=== PATIENT | female | born 1950 | race Caucasian/White ===

== ENCOUNTER 2018-01-08 06:48 | Emergency (ER) | payer OTHER ==
[2018-01-08] MEDS ORDERED: NA CHLORIDE 0.9% 1,000 ML ONE (07:19)
[2018-01-08 07:23] LABS: Urine Blood 2+ (NEG); Urine Glucose NEGATIVE (NEG); Urine Protein 1+ (NEG); Urine Specific Gravity 1.015 (1.005-1.030)
[2018-01-08] MEDS ORDERED: MORPHINE 4 MG/ML SYR ONE (07:28)
[2018-01-08] MEDS ORDERED: ONDANSETRON 4 MG/2 ML VIAL ONE (07:28)
[2018-01-08 08:01] LABS: Urine Bacteria >50 /HPF (<20); Urine Culture Reflex Order REFLEXED
[2018-01-08 08:02] LABS: Urine Mucus NS /HPF (NONE SEEN)
[2018-01-08 08:03] LABS: Potassium 3.6 mEq/L (3.6-5.0)
[2018-01-08] MEDS ORDERED: CEFTRIAXONE/SWI 1gm 1 GM/10 ML SYR ONE (08:11)
--- NOTE | 2018-01-08 08:15 | RAD REPORT ---
EXAM DESCRIPTION: CT - Stone Protocol - 01/08/2018 7:42 am CLINICAL HISTORY: Abdominal pain, dysuria COMPARISON: None. TECHNIQUE: Axial 5 mm thick images were obtained without oral or IV contrast. The [id number] span s the entirety of the system including uppermost abdomen and lung bases. All CT scans are performed using dose optimization technique as appropriate and may include automated exposure control or mA/KV adjustment according to patient size. FINDINGS: No hydronephrosis is present and no obstructing ureteral calculi. No suspicious renal mass es. Isodense masses and pyelonephritis are not excluded on a stone protocol CT scan. Urinary bladder is almost fully contracted. This accentuates wall thickness. However, rizzo of bladder do appear more prominent than expected even for contracted state. There is shaggy margination as well as some conge stion or edema in the adjacent fat. Cystitis is suspected and needs correlation with UA findings. Bagwell ramiro is absent. Ovaries are absent, atrophic or obscured by bowel. No adnexal abnormality seen. Imaged portions of the liver, spleen and pancreas show no suspicious findings on non-contrast imaging . No gallbladder or biliary tree abnormality identified. No significant adrenal finding. No gastric dilatation or gastric wall thickening. There is moderately large stool volume throughout t he colon. Air, fluid and stool distended cecum is present. The cecum is low lying along the floor the pelvis. Patient has numerous nondilated fluid-filled small bowel loops probably incidental to the cu rrent clinical presentation. No hernia, mass or bulky lymphadenopathy noted. No free air, free fluid or inflammatory stranding. No significant bony abnormality. IMPRESSION: Probable cystitis. Correlation is needed with UA abnormalities. No hydronephrosis, obstructing calculus or other acute finding. Isodense masses and pyelonephritis are not excluded on stone protocol technique. Moderately large stool volume throughout the colon with multiple nondilated fluid-filled small bowel loops. These are likely incidental findings to the current presentation.
--- NOTE | 2018-01-08 08:29 | ER ---
Nurse's Notes [facility] Name: Yenny Naranjo Age: 67 yrs Sex: Female : 1950 Arrival Date: 01/08/2018 Time: 06:52 Bed 18 Private MD: Diagnosis: Cystitis Presentation: 01/08 07:06 Presenting complaint: Patient states: c/o dysuria and urinary frequency with low back em pain that started yesterday, denies fever, N/V. Transition of care: patient was not received from another setting of care. Onset of symptoms was January 07, 2018. Care prior to arrival: None. 07:06 Method Of Arrival: Ambulatory em 07:06 Acuity: ZORA 3 iw Triage Assessment: 07:09 General: Appears in no apparent distress. uncomfortable. General: Appears Behavior is em calm, cooperative. Pain: Complains of pain in groin Pain currently is 9 out of 10 on a pain scale. Quality of pain is described as burning. Historical: - Allergies: 07:09 No Known Allergies; em - PMHx: 07:09 None; em - PSHx: 07:09 Hysterectomy; Hernia repair; em - Immunization history:: Adult Immunizations up to date. - Social history:: Smoking status: Patient/guardian denies using tobacco. Screenin:13 Abuse screen: Denies threats or abuse. Nutritional screening: No deficits noted. em Tuberculosis screening: No symptoms or risk factors identified. Fall Risk None identified. Assessment: 07:10 General: Appears in no apparent distress. uncomfortable, Behavior is calm, appropriate em for age. Pain: Complains of pain in left low back and right low back and groin Pain currently is 9 out of 10 on a pain scale. Quality of pain is described as burning, Pain began 1 day ago. Neuro: Level of Consciousness is awake, alert, obeys commands, Oriented to person, place, time, situation, Gait is steady. Cardiovascular: Capillary refill < 3 seconds Patient's skin is warm and dry. Respiratory: Airway is patent Respiratory effort is even, unlabored, Respiratory pattern is regular, symmetrical. GI: Abdomen is flat, Patient currently denies nausea, vomiting. : Urine is cloudy, Reports burning with urination, pain in lower back urinary frequency. EENT: No signs and/or symptoms were reported regarding the EENT system. Derm: Skin is intact, Skin is pink, warm \T\ dry. Musculoskeletal: Range of motion: intact in all extremities. 07:25 Reassessment: I agree with the above assessment by Jarad Atkinson LVN. iw 07:48 Reassessment: Patient appears in no apparent distress at this time. Patient and/or em family updated on plan of care and expected duration. Pain level reassessed. Patient is alert, oriented x 3, equal unlabored respirations, skin warm/dry/pink. Patient states feeling better. 08:29 Reassessment: Patient appears in no apparent distress at this time. Patient and/or em family updated on plan of care and expected duration. Pain level reassessed. Patient is alert, oriented x 3, equal unlabored respirations, skin warm/dry/pink. Patient states feeling better. Vital Signs: 07:10 BP 134 / 62; Pulse 67; Resp 18; Temp 98.1(O); Pulse Ox 100% on R/A; Weight 54.43 kg em (R); Height 5 ft. 6 in. (167.64 cm); Pain 9/10; 08:00 BP 122 / 71; Pulse 65; Resp 17; Pulse Ox 100% on R/A; Pain 5/10; em 08:29 BP 122 / 81; Pulse 67; Resp 18; Pulse Ox 99% on R/A; em 07:10 Body Mass Index 19.37 (54.43 kg, 167.64 cm) em ED Course: 06:52 Patient arrived in ED. do 07:03 [facility]C [facility] kb 07:03 Miguel Kruger MD is Attending Physician. kb 07:03 Miguel Kruger MD is Attending Physician. kdr 07:06 Jarad Atkinson LVN is Primary Nurse. em 07:13 Arm band placed on. em 07:13 No provider procedures requiring assistance completed. em 07:14 Patient has correct armband on for positive identification. Bed in low position. Call em light in reach. Side rails up X2. Warm blanket given. 07:20 Initial lab(s) drawn, by me, sent to lab. Inserted saline lock: 20 gauge in left em antecubital area, using aseptic technique. Blood collected. 07:39 CT completed. Patient moved to CT via wheelchair. Patient moved back from CT. cw1 07:41 CT Stone Protocol In Process Unspecified. EDMS 07:44 Urine collected: clean catch specimen, cloudy. mh5 07:45 Urine Microscopic Only Sent. mh5 07:45 Urine Dipstick--Ancillary (enter results) Sent. mh5 07:57 Triage completed. iw 08:40 IV discontinued, intact, bleeding controlled, No redness/swelling at site. Pressure em dressing applied. Administered Medications: 07:26 Drug: NS 0.9% 1000 ml Route: IV; Rate: 1000 ml; Site: left antecubital; em 08:30 Follow up: IV Status: Completed infusion; IV Intake: 1000ml em 07:31 Drug: Zofran 4 mg Route: IVP; Site: left antecubital; iw 08:18 Follow up: Response: No adverse reaction em 07:31 Drug: morphine 4 mg Route: IVP; Site: left antecubital; iw 07:48 Follow up: Response: No adverse reaction; Pain is decreased em 08:18 Drug: Rocephin - (cefTRIAXone) 1 grams Route: IVPB; Infused Over: 30 mins; Site: left iw antecubital; 08:30 Follow up: Response: No adverse reaction em Intake: 08:30 IV: 1000ml; Total: 1000ml. em Outcome: 08:28 Discharge ordered by . kb 08:47 Discharged to home ambulatory. em 08:47 Condition: good 08:47 Discharge instructions given to patient, Instructed on discharge instructions, follow up and referral plans. medication usage, Demonstrated understanding of instructions, follow-up care, medications, Prescriptions given X 1. 08:47 Patient left the ED. em Addendum: 01/11/2018 07:59 Addendum: Culture Results: Positive urine culture. No further action required. Bacteria i w sensitive to prescribed antibiotic. Signatures: Dispatcher [employer] EDBenita Crow, SONIA VOGEL-Miguel Abel MD MD kdr Munoz, Edgar, LEAD SOFTWARE ARCHITECT LEAD SOFTWARE ARCHITECT em Rhonda Jackson, Sofi Schreiber RN cw1 Nora, Adri Fraser 5 Corrections: (The following items were deleted from the chart) 01/08 08:08 08:00 BP 122 / 71; Pulse 65bpm; Resp 17bpm; Pulse Ox 100% RA; mh5 em
--- NOTE | 2018-01-08 08:29 | EDPHYS ---
Physician Documentation [facility] Name: Yenny Naranjo Age: 67 yrs Sex: Female : 1950 Arrival Date: 01/08/2018 Time: 06:52 Bed 18 Private MD: ED Physician Miguel Kruger HPI: 01/08 07:05 This 67 yrs old Female presents to ER via Unassigned with complaints of Back kb Pain, Urinary Problem. 07:06 The patient complains of pain in the left flank and right flank. The pain does not kb radiate. Onset: The symptoms/episode began/occurred yesterday. Modifying factors: The symptoms are alleviated by nothing. the symptoms are aggravated by nothing. Associated signs and symptoms: Pertinent positives: dysuria, urinary frequency, Pertinent negatives: diarrhea, dizziness, fever, headache, hematuria, nausea, pain radiating to the lower extremities, vomiting. Severity of pain: At its worst the pain was moderate in the emergency department the pain is unchanged. The patient has not experienced similar symptoms in the past. The patient has not recently seen a physician. Historical: - Allergies: 07:09 No Known Allergies; em - PMHx: 07:09 None; em - PSHx: 07:09 Hysterectomy; Hernia repair; em - Immunization history:: Adult Immunizations up to date. - Social history:: Smoking status: Patient/guardian denies using tobacco. ROS: 07:05 Constitutional: Negative for fever, chills, and weight loss, Cardiovascular: Negative kb for chest pain, palpitations, and edema, Respiratory: Negative for shortness of breath, cough, wheezing, and pleuritic chest pain, Abdomen/GI: Negative for abdominal pain, nausea, vomiting, diarrhea, and constipation, MS/Extremity: Negative for injury and deformity, Skin: Negative for injury, rash, and discoloration, Neuro: Negative for headache, weakness, numbness, tingling, and seizure. 07:05 Back: Positive for flank pain, bilaterally. 07:05 : Positive for urinary symptoms, urinary frequency, burning with urination, difficulty urinating. Exam: 07:05 Constitutional: This is a well developed, well nourished patient who is awake, alert, kb and in no acute distress. Head/Face: Normocephalic, atraumatic. Chest/axilla: Normal chest wall appearance and motion. Nontender with no deformity. No lesions are appreciated. Cardiovascular: Regular rate and rhythm with a normal S1 and S2. No gallops, murmurs, or rubs. Normal PMI, no JVD. No pulse deficits. Respiratory: Lungs have equal breath sounds bilaterally, clear to auscultation and percussion. No rales, rhonchi or wheezes noted. No increased work of breathing, no retractions or nasal flaring. Abdomen/GI: Soft, non-tender, with normal bowel sounds. No distension or tympany. No guarding or rebound. No evidence of tenderness throughout. Skin: Warm, dry with normal turgor. Normal color with no rashes, no lesions, and no evidence of cellulitis. MS/ Extremity: Pulses equal, no cyanosis. Neurovascular intact. Full, normal range of motion. Neuro: Awake and alert, GCS 15, oriented to person, place, time, and situation. Cranial nerves II-XII grossly intact. Motor strength 5/5 in all extremities. Sensory grossly intact. Cerebellar exam normal. Normal gait. 07:05 Back: CVA tenderness, that is moderate, is noted on the left. Vital Signs: 07:10 BP 134 / 62; Pulse 67; Resp 18; Temp 98.1(O); Pulse Ox 100% on R/A; Weight 54.43 kg em (R); Height 5 ft. 6 in. (167.64 cm); Pain 9/10; 08:00 BP 122 / 71; Pulse 65; Resp 17; Pulse Ox 100% on R/A; Pain 5/10; em 08:29 BP 122 / 81; Pulse 67; Resp 18; Pulse Ox 99% on R/A; em 07:10 Body Mass Index 19.37 (54.43 kg, 167.64 cm) em MDM: 07:05 Patient medically screened. kb 07:05 Data reviewed: vital signs, nurses notes. Data interpreted: Pulse oximetry: on room air kb is 100 %. Interpretation: normal. 08:18 Counseling: I had a detailed discussion with the patient and/or guardian regarding: the kb historical points, exam findings, and any diagnostic results supporting the discharge/admit diagnosis, lab results, radiology results, the need for outpatient follow up, a family practitioner, to return to the emergency department if symptoms worsen or persist or if there are any questions or concerns that arise at home. 01/08 07:05 Order name: Urine Microscopic Only kb 01/08 07:05 Order name: Urine Microscopic Only; Complete Time: 08:03 EDMS 01/08 07:17 Order name: Basic Metabolic Panel; Complete Time: 08:04 kb 01/08 07:22 Order name: Urine Dipstick--Ancillary (enter results) ag 01/08 07:23 Order name: Urine Dipstick-Ancillary; Complete Time: 07:24 EDMS 01/08 08:03 Order name: Urine Culture EDMS 01/08 07:05 Order name: Urine Dipstick-Ancillary (obtain specimen); Complete Time: 07:15 kb 01/08 07:17 Order name: CT Stone Protocol; Complete Time: 08:18 kb 01/08 07:17 Order name: IV Start; Complete Time: 07:26 kb Administered Medications: 07:26 Drug: NS 0.9% 1000 ml Route: IV; Rate: 1000 ml; Site: left antecubital; em 08:30 Follow up: IV Status: Completed infusion; IV Intake: 1000ml em 07:31 Drug: Zofran 4 mg Route: IVP; Site: left antecubital; iw 08:18 Follow up: Response: No adverse reaction em 07:31 Drug: morphine 4 mg Route: IVP; Site: left antecubital; iw 07:48 Follow up: Response: No adverse reaction; Pain is decreased em 08:18 Drug: Rocephin - (cefTRIAXone) 1 grams Route: IVPB; Infused Over: 30 mins; Site: left iw antecubital; 08:30 Follow up: Response: No adverse reaction em Disposition: 09:18 Co-signature as Attending Physician, Miguel Kruger MD I agree with the assessment and kdr plan of care. Disposition: 01/08/18 08:28 Discharged to Home. Impression: Cystitis. - Condition is Stable. - Discharge Instructions: Urinary Tract Infection, [id number]. - Prescriptions for Cipro 500 mg Oral Tablet - take 1 tablet by ORAL route every 12 hours for 10 days; 20 tablet. - Medication Reconciliation Form, Thank You Letter, Antibiotic Education, Prescription Opioid Use form. - Follow up: Emergency Department; When: As needed; Reason: Worsening of condition. Follow up: Private Physician; When: 2 - 3 days; Reason: Recheck today's complaints, Continuance of care, Re-evaluation by your physician. Signatures: Dispatcher [employer] Benita Childs, OIL WELL SERVICE UNIT OPERATOR-C LELA-Miguel Abel MD MD kdr Munoz, Edgar, SULFURIC ACID PLANT OPERATOR SULFURIC ACID PLANT OPERATOR Rhonda Villeda RN RN iw
== END 2018-01-08 08:47 | disposition home or self-care (01) ==
LOC: ER 06:48
DX: N30.90 Cystitis, unspecified without hematuria (principal)
CPT/HCPCS: 36415; 74176; 76377; 80048; 87077; 87086; 87088; 87186; 96361; 96374; 96375; 99284; J0696; J2405; J7030; 81003; 81015